=== PATIENT | male | born 1945 | race Asian ===

== ENCOUNTER 2016-10-20 06:59 | Outpatient (CLI) | payer OTHER ==
[2016-10-20 07:52] LABS: % BASOPHILS 0.7 % (0.0-2.0); % EOSINOPHILS 6.1 % (0.0-5.0); % LYMPHOCYTES 31.1 % (20.0-50.0); % MONOCYTES 9.3 % (2.0-10.0); % NEUTROPHILS 52.8 % (40.0-80.0); HEMATOCRIT 45.2 % (39.0-49.0); HEMOGLOBIN 15.1 gm/dL (12.6-17.4); MEAN CELL VOLUME 87.7 fl (80-99); MEAN CORPUSCULAR HEMOGLOBIN 29.2 pg (27.0-31.0); MEAN CORPUSCULAR HGB CONC 33.3 pg (28.0-36.0); MEAN PLATELET VOLUME 8.1 fl; NEUTROPHILE ABSOLUTE 3.5 Th/cmm (1.8-8.0); PLATELET COUNT 233 Th/cmm (150-400); RED BLOOD COUNT 5.16 Mil/cmm (3.80-5.80); WHITE BLOOD COUNT 6.5 Th/cmm (4.8-10.8)
[2016-10-20 08:04] LABS: ALB/GLOB RATIO 1.3 (1.0-1.8); ALKALINE PHOSPHATASE 63 U/L (34-104); BILIRUBIN,TOTAL 0.8 mg/dL (0.3-1.0); BUN - UREA NITROGEN 15 mg/dL (7-25); BUN/CREATININE RATIO 16.7; CALCIUM SERUM 9.8 mg/dL (8.6-10.3); CARBON DIOXIDE 31.3 mEq/L (21.0-31.0); CHLORIDE 102 mEq/L (98-107); CHOLESTEROL 169 mg/dL (<200); CREATININE - SERUM 0.9 mg/dL (0.7-1.3); GLUCOSE 100 mg/dL (70-105); POTASSIUM SERUM 4.3 mEq/L (3.5-5.1); SGOT 42 U/L (13-39); SGPT/ALT 32 U/L (7-52); SODIUM SERUM 133 mEq/L (136-145); TRIGLYCERIDES 108 mg/dL (<150)
[2016-10-20 08:59] LABS: URINE BILIRUBIN NEGATIVE (NEGATIVE); URINE COLOR YELLOW; URINE GLUCOSE (UA) NEGATIVE (NEGATIVE)
[2016-10-20 09:00] LABS: URINE BACTERIA NONE SEEN /hpf (NONE SEEN); URINE BLOOD NEGATIVE (NEGATIVE); URINE EPITHELIAL CELLS RARE /lpf (FEW); URINE KETONE NEGATIVE (NEGATIVE); URINE PH 7.5; URINE PROTEIN NEGATIVE (NEGATIVE); URINE RBC NONE SEEN /hpf (0-5); URINE UROBILINOGEN 0.2 E.U./dL (0.2 - 1.0); URINE WBC NONE SEEN /hpf (0-5)
== END 2016-10-20 08:00 | disposition home or self-care (01) ==
LOC: LAB 06:59
DX: N40.0 Benign prostatic hyperplasia without lower urinary tract symptoms (principal); Z86.39 Personal history of other endocrine, nutritional and metabolic disease
CPT/HCPCS: 36415-UA; 80053-TC; 80061-TC; 81001-TC; 82306-90; 82607-90; 84153-90; 84443-TC; 85025-TC